=== PATIENT | male | born 1985 | race Caucasian/White ===

== ENCOUNTER 2018-01-25 19:05 | Emergency (ER) | payer SELFPAY ==
[~2018-01-25] VITALS: Ht 172.7 cm; Wt 85.7 kg
[2018-01-25 19:56] LABS: BASO # 0.1 10*3/uL (0.0-0.1); BASO % 0.6 % (0.0-1.0); EOS # 0.5 10*3/uL (0.0-0.4); EOS % 4.7 % (1.0-4.0); HEMATOCRIT 41.2 % (42.0-52.0); HEMOGLOBIN 13.5 g/dl (14.0-18.0); LYMPH % 27.5 % (27.0-41.0); MEAN CELL VOLUME 95.2 fl (80.0-94.0); MEAN CORPUSCULAR HGB 31.2 pg (27.0-31.0); MEAN CORPUSCULAR HGB CONC 32.8 g/dl (33.0-37.0); MEAN PLATELET VOLUME 9.7 fl (9.6-12.3); MONO % 8.7 % (3.0-9.0); NEUT # 6.3 10*3/uL (2.3-7.9); PLATELET COUNT AUTOMATED 285 10*3/uL (130-400); RED BLOOD COUNT 4.33 10*6/uL (4.50-5.90); RED CELL DISTRI WIDTH 12.4 % (0-14.5); WHITE BLOOD COUNT 10.9 10*3/uL (4.8-10.8)
[2018-01-25 19:57] LABS: BILIRUBIN NEGATIVE (NEGATIVE); BLOOD NEGATIVE (NEGATIVE); CLARITY SL CLOUDY (CLEAR); COLOR YELLOW (YELLOW); GLUCOSE NEGATIVE (NEGATIVE); KETONE TRACE (NEGATIVE); LEUKO ESTERASE 2+ (NEGATIVE); NITRITE NEGATIVE (NEGATIVE); PH 6.5 (5.0-9.0)
[2018-01-25 20:06] LABS: URINE AMPHETAMINES < 1000 (1000ng/ml); URINE BARBITURATES < 200 (200ng/ml); URINE BENZODIAZEPINES < 200 (200ng/ml); URINE CANNABINOIDS (THC) < 50 (50ng/ml); URINE COCAINE < 300 (300ng/ml); URINE METHADONE < 300 (300ng/ml); URINE OPIATES < 300 (300ng/ml)
[2018-01-25 20:10] LABS: URINE PHENCYCLIDINE < 25 (25ng/ml)
[2018-01-25 20:14] LABS: ALBUMIN 3.7 gm/dl (3.1-4.5); ALKALINE PHOSPHATASE 107 U/L (45-117); BUN 17 mg/dl (7-24); CHLORIDE 106 mmol/L (98-107); CREATININE 0.88 mg/dL (0.70-1.30); LIPASE 131 U/L (73-393); POTASSIUM 3.8 mmol/L (3.5-5.1); SGOT/AST 19 IU/L (3-35); SGPT/ALT 30 U/L (12-78); SODIUM 140 mmol/L (136-145); TOTAL PROTEIN 6.5 gm/dL (6.4-8.2)
[2018-01-25 20:15] LABS: TROPONIN I < 0.015 ng/ml (<0.045)
[2018-01-25 20:19] LABS: BACTERIA 1+; WBC TNTC wbc/hpf (0-5)
[2018-01-25 20:28] LABS: ETHYL ALCOHOL < 3.0 mg/dl (<3)
== END 2018-01-25 23:32 | disposition home or self-care (01) ==
LOC: ED 19:05
PROVIDERS: Emergency Medicine Emergency Medical Services
DX: R56.9 Unspecified convulsions (principal); F17.200 Nicotine dependence, unspecified, uncomplicated

== ENCOUNTER 2020-07-10 16:16 | Emergency (ER) | payer SELFPAY ==
[~2020-07-10] VITALS: Ht 190.5 cm; Wt 93.4 kg
[2020-07-10] MEDS ORDERED: IBU800 MG PO (17:45)
[2020-07-10] MEDS ORDERED: CLEOCIN HCL150 MG PO (17:45)
== END 2020-07-10 18:02 | disposition home or self-care (01) ==
LOC: ED 16:16
DX: K04.7 Periapical abscess without sinus (principal); F17.200 Nicotine dependence, unspecified, uncomplicated

== ENCOUNTER 2020-08-06 11:15 | Emergency (ER) | payer SELFPAY ==
[~2020-08-06] VITALS: Ht 190.5 cm; Wt 89.8 kg
[~2020-08-06 11:15] MED LIST: CLEOCIN HCL150 MG PO; IBU800 MG PO
[2020-08-06] MEDS ORDERED: NAPROSYN500 MG PO (12:01)
[2020-08-06] MEDS ORDERED: AMOXICILLIN500 M2 PO (12:01)
== END 2020-08-06 12:13 | disposition home or self-care (01) ==
LOC: ED 11:15
DX: K08.89 Other specified disorders of teeth and supporting structures (principal); Z79.899 Other long term (current) drug therapy

== ENCOUNTER 2020-11-23 13:57 | Emergency (ER) | payer OTHER ==
[~2020-11-23] VITALS: Ht 190.5 cm; Wt 89.8 kg
[~2020-11-23 13:57] MED LIST changes: +AMOXICILLIN500 M2 PO; +NAPROSYN500 MG PO
[2020-11-23] MEDS ORDERED: PREDNISONE20 M1 PO (16:12)
[2020-11-23] MEDS ORDERED: PROVENTIL HFA6.7 GM INH (16:12)
== END 2020-11-23 17:47 | disposition home or self-care (01) ==
LOC: ED 13:57
DX: R05 Cough (principal); J02.9 Acute pharyngitis, unspecified; R19.7 Diarrhea, unspecified; Z79.899 Other long term (current) drug therapy; Z20.828 Contact with and (suspected) exposure to other viral communicable diseases

== ENCOUNTER 2020-12-08 19:08 | Observation (INO) | payer OTHER ==
[~2020-12-08] VITALS: Ht 190.5 cm; Wt 89.8 kg
[~2020-12-08 19:08] MED LIST changes: +PREDNISONE20 M1 PO; +PROVENTIL HFA6.7 GM INH
[2020-12-08 19:26] VITALS: BP 119/73
[2020-12-08 20:16] LABS: BASO # 0.1 10*3/uL (0.0-0.1); BASO % 0.5 % (0.0-1.0); EOS # 0.2 10*3/uL (0.0-0.4); HEMATOCRIT 42.4 % (42.0-52.0); LYMPH # 2.5 10*3/uL (1.3-4.4); LYMPH % 22.9 % (27.0-41.0); MEAN CELL VOLUME 92.6 fl (80.0-94.0); MEAN CORPUSCULAR HGB 30.8 pg (27.0-31.0); MEAN CORPUSCULAR HGB CONC 33.3 g/dl (33.0-37.0); MEAN PLATELET VOLUME 9.4 fl (9.6-12.3); MONO # 0.6 10*3/uL (0.1-1.0); MONO % 5.7 % (3.0-9.0); NEUT # 7.5 10*3/uL (2.3-7.9); NEUT % 68.5 % (47.0-73.0); PLATELET COUNT AUTOMATED 351 10*3/uL (130-400); RED BLOOD COUNT 4.58 10*6/uL (4.50-5.90); RED CELL DISTRI WIDTH 13.3 % (0-14.5); WHITE BLOOD COUNT 10.9 10*3/uL (4.8-10.8)
[2020-12-08 20:36] VITALS: BP 130/78
[2020-12-08 21:06] LABS: ALBUMIN 4.1 gm/dl (3.1-4.5); ALKALINE PHOSPHATASE 78 U/L (45-117); BUN 17 mg/dl (7-24); CHLORIDE 109 mmol/L (98-107); CREATININE 0.95 mg/dL (0.70-1.30); POTASSIUM 3.8 mmol/L (3.5-5.1); SGOT/AST 16 IU/L (3-35); SGPT/ALT 33 U/L (12-78); SODIUM 140 mmol/L (136-145); TOTAL PROTEIN 7.3 gm/dL (6.4-8.2)
[2020-12-08 21:21] VITALS: BP 120/71
[2020-12-08 21:59] LABS: ABG BASE EXCESS -0.3 mmol/L (-2.0-2.0); ARTERIAL BLOOD GAS PH 7.428 (7.35-7.45)
[2020-12-08 22:01] VITALS: BP 114/85
[2020-12-08 22:47] VITALS: BP 116/75
[2020-12-09 03:11] VITALS: BP 120/68
[2020-12-09 04:59] LABS: BASO % 0.5 % (0.0-1.0); EOS # 0.4 10*3/uL (0.0-0.4); EOS % 4.1 % (1.0-4.0); LYMPH # 3.2 10*3/uL (1.3-4.4); LYMPH % 37.1 % (27.0-41.0); MEAN CELL VOLUME 94.7 fl (80.0-94.0); MEAN CORPUSCULAR HGB 30.6 pg (27.0-31.0); MEAN CORPUSCULAR HGB CONC 32.3 g/dl (33.0-37.0); MEAN PLATELET VOLUME 9.6 fl (9.6-12.3); MONO # 0.8 10*3/uL (0.1-1.0); MONO % 8.7 % (3.0-9.0); NEUT # 4.3 10*3/uL (2.3-7.9); NEUT % 49.4 % (47.0-73.0); PLATELET COUNT AUTOMATED 299 10*3/uL (130-400); RED BLOOD COUNT 4.12 10*6/uL (4.50-5.90); RED CELL DISTRI WIDTH 13.7 % (0-14.5); WHITE BLOOD COUNT 8.6 10*3/uL (4.8-10.8)
[2020-12-09 05:04] VITALS: BP 113/69
[2020-12-09 05:37] LABS: ALBUMIN 3.4 gm/dl (3.1-4.5); ALKALINE PHOSPHATASE 83 U/L (45-117); BUN 20 mg/dl (7-24); CHLORIDE 110 mmol/L (98-107); CREATININE 1.04 mg/dL (0.70-1.30); SGOT/AST 13 IU/L (3-35); SGPT/ALT 25 U/L (12-78); SODIUM 141 mmol/L (136-145); TOTAL PROTEIN 6.3 gm/dL (6.4-8.2)
[2020-12-09 06:21] VITALS: BP 101/58
[2020-12-09 07:38] VITALS: BP 99/67
[2020-12-09 08:23] VITALS: BP 87/57
== END 2020-12-09 18:24 | disposition home or self-care (01) ==
LOC: ED 19:08 → EDHOLD 21:33
PROVIDERS: Emergency Medicine; Nurse Practitioner Family; Student in an Organized Health Care Education/Training Program; ADMIT Family Medicine; ATTEND Family Medicine
DX: T58.91XA Toxic effect of carbon monoxide from unspecified source, accidental (unintentional), initial encounter (principal); G40.909 Epilepsy, unspecified, not intractable, without status epilepticus; R65.10 Systemic inflammatory response syndrome (SIRS) of non-infectious origin without acute organ dysfunction; R06.82 Tachypnea, not elsewhere classified; D72.829 Elevated white blood cell count, unspecified; E87.8 Other disorders of electrolyte and fluid balance, not elsewhere classified; F17.210 Nicotine dependence, cigarettes, uncomplicated; R03.0 Elevated blood-pressure reading, without diagnosis of hypertension; V93.83XA Other injury due to other accident on board other powered watercraft, initial encounter; Y93.89 Activity, other specified; Y92.89 Other specified places as the place of occurrence of the external cause; Y99.8 Other external cause status; Z71.6 Tobacco abuse counseling; Z20.828 Contact with and (suspected) exposure to other viral communicable diseases

== ENCOUNTER 2021-12-27 04:10 | Emergency (ER) | payer OTHER ==
[~2021-12-27] VITALS: Ht 185.4 cm; Wt 95.3 kg
== END 2021-12-27 05:24 | disposition home or self-care (01) ==
LOC: ED 04:10
DX: S05.02XA Injury of conjunctiva and corneal abrasion without foreign body, left eye, initial encounter (principal); F17.210 Nicotine dependence, cigarettes, uncomplicated; X58.XXXA Exposure to other specified factors, initial encounter; Y93.89 Activity, other specified; Y92.89 Other specified places as the place of occurrence of the external cause; Y99.8 Other external cause status

== ENCOUNTER 2022-04-03 21:47 | Emergency (ER) | payer OTHER ==
[~2022-04-03] VITALS: Ht 190.5 cm; Wt 90.7 kg
[2022-04-04 01:07] LABS: BASO # 0.1 10*3/uL (0.0-0.1); BASO % 0.7 % (0.0-1.0); EOS # 0.6 10*3/uL (0.0-0.4); EOS % 5.2 % (1.0-4.0); HEMATOCRIT 41.8 % (42.0-52.0); LYMPH # 4.3 10*3/uL (1.3-4.4); LYMPH % 40.2 % (27.0-41.0); MEAN CELL VOLUME 92.7 fl (80.0-94.0); MEAN CORPUSCULAR HGB 30.6 pg (27.0-31.0); MEAN PLATELET VOLUME 9.1 fl (9.6-12.3); MONO # 0.8 10*3/uL (0.1-1.0); MONO % 7.5 % (3.0-9.0); NEUT # 4.9 10*3/uL (2.3-7.9); PLATELET COUNT AUTOMATED 323 10*3/uL (130-400); RED BLOOD COUNT 4.51 10*6/uL (4.50-5.90); RED CELL DISTRI WIDTH 13.1 % (0-14.5); WHITE BLOOD COUNT 10.6 10*3/uL (4.8-10.8)
[2022-04-04 01:24] LABS: ALKALINE PHOSPHATASE 89 U/L (45-117); BUN 12 mg/dl (7-24); CHLORIDE 110 mmol/L (98-107); CREATININE 0.84 mg/dL (0.70-1.30); POTASSIUM 3.8 mmol/L (3.5-5.1); SGOT/AST 17 IU/L (3-35); SGPT/ALT 30 U/L (12-78); SODIUM 140 mmol/L (136-145); TOTAL PROTEIN 6.2 gm/dL (6.4-8.2)
[2022-04-04 01:38] LABS: URINE AMPHETAMINES < 1000 (1000ng/ml); URINE BARBITURATES < 200 (200ng/ml); URINE BENZODIAZEPINES < 200 (200ng/ml); URINE CANNABINOIDS (THC) < 50 (50ng/ml); URINE COCAINE < 300 (300ng/ml); URINE METHADONE < 300 (300ng/ml); URINE OPIATES < 300 (300ng/ml)
[2022-04-04 01:41] LABS: URINE PHENCYCLIDINE < 25 (25ng/ml)
== END 2022-04-04 03:46 | disposition home or self-care (01) ==
LOC: ED 21:47
PROVIDERS: Emergency Medicine
DX: R56.9 Unspecified convulsions (principal)

== ENCOUNTER 2022-06-18 19:35 | Emergency (ER) | payer OTHER ==
[2022-06-18] MEDS ORDERED: VIBRA-TAB100 MG PO (20:31)
== END 2022-06-18 20:42 | disposition home or self-care (01) ==
LOC: ED 19:35
DX: L02.413 Cutaneous abscess of right upper limb (principal)

== ENCOUNTER 2023-03-24 11:39 | Emergency (ER) | payer OTHER ==
[~2023-03-24] VITALS: Ht 190.5 cm; Wt 89.8 kg
[~2023-03-24 11:39] MED LIST changes: +VIBRA-TAB100 MG PO
== END 2023-03-24 11:58 | disposition home or self-care (01) ==
LOC: ED 11:39
DX: H10.33 Unspecified acute conjunctivitis, bilateral (principal); Z91.040 Latex allergy status; Z87.891 Personal history of nicotine dependence

== ENCOUNTER 2023-04-24 22:01 | Emergency (ER) | payer SELFPAY ==
[~2023-04-24] VITALS: Ht 190.5 cm; Wt 99.8 kg
[2023-04-25] MEDS ORDERED: CYCLOBENZAPRINE10 MG PO (00:50)
== END 2023-04-25 01:00 | disposition home or self-care (01) ==
LOC: ED 22:01
DX: S16.1XXA Strain of muscle, fascia and tendon at neck level, initial encounter (principal); E87.8 Other disorders of electrolyte and fluid balance, not elsewhere classified; Z91.040 Latex allergy status; Z88.8 Allergy status to other drugs, medicaments and biological substances; F17.200 Nicotine dependence, unspecified, uncomplicated; V89.2XXA Person injured in unspecified motor-vehicle accident, traffic, initial encounter; Y93.89 Activity, other specified; Y92.410 Unspecified street and highway as the place of occurrence of the external cause; Y99.8 Other external cause status

== ENCOUNTER 2024-05-17 17:50 | Emergency (ER) | payer SELFPAY ==
[~2024-05-17] VITALS: Ht 190.5 cm; Wt 89.8 kg
[~2024-05-17 17:50] MED LIST changes: +CYCLOBENZAPRINE10 MG PO
[2024-05-17] MEDS ORDERED: Acetaminophen/Oxycodone 5 MG/325 MG TABLET PO ONE (18:00)
[2024-05-17] MEDS ORDERED: MELOXICAM15 MG PO (18:23)
== END 2024-05-17 18:49 | disposition home or self-care (01) ==
LOC: ED 17:50
DX: S90.31XA Contusion of right foot, initial encounter (principal); F17.200 Nicotine dependence, unspecified, uncomplicated; Z91.040 Latex allergy status; Z88.8 Allergy status to other drugs, medicaments and biological substances; W20.8XXA Other cause of strike by thrown, projected or falling object, initial encounter; Y93.89 Activity, other specified; Y92.89 Other specified places as the place of occurrence of the external cause; Y99.0 Civilian activity done for income or pay

== ENCOUNTER 2024-12-19 19:56 | Emergency (ER) | payer SELFPAY ==
[~2024-12-19] VITALS: Ht 185.4 cm; Wt 90.7 kg
[~2024-12-19 19:56] MED LIST changes: +MELOXICAM15 MG PO
[2024-12-19 20:16] LABS: BASO % 0.4 % (0.0-1.0); EOS # 0.4 10*3/uL (0.0-0.4); EOS % 3.8 % (1.0-4.0); MEAN CELL VOLUME 92.1 fl (80.0-94.0); MEAN CORPUSCULAR HGB 30.1 pg (27.0-31.0); MEAN CORPUSCULAR HGB CONC 32.7 g/dl (33.0-37.0); MONO # 0.9 10*3/uL (0.1-1.0); NEUT # 4.6 10*3/uL (2.3-7.9); NEUT % 46.7 % (47.0-73.0); PLATELET COUNT AUTOMATED 355 10*3/uL (130-400); RED BLOOD COUNT 4.45 10*6/uL (4.50-5.90); RED CELL DISTRI WIDTH 13.2 % (0-14.5); WHITE BLOOD COUNT 9.8 10*3/uL (4.8-10.8)
[2024-12-19 20:34] LABS: BILIRUBIN Negative (Negative); BLOOD Negative (Negative); CLARITY Clear (Clear); COLOR Yellow (Yellow); GLUCOSE Negative (Negative); KETONE Negative (Negative); LEUKO ESTERASE Negative (Negative); NITRITE Negative (Negative); SPECIFIC GRAVITY <= 1.005 (1.001-1.030); UROBILINOGEN 0.2 E.U./dl (0.0-1.0)
[2024-12-19 20:45] LABS: URINE AMPHETAMINES Negative (1000ng/ml); URINE BARBITURATES Negative (200ng/ml); URINE BENZODIAZEPINES Negative (200ng/ml); URINE CANNABINOIDS (THC) Negative (50ng/ml); URINE COCAINE Negative (300ng/ml); URINE METHADONE Negative (300ng/ml); URINE OPIATES Negative (300ng/ml); URINE PHENCYCLIDINE Negative (25ng/ml)
[2024-12-19 20:46] LABS: BUN 11 mg/dl (9-23); CHLORIDE 105 mmol/L (98-107); POTASSIUM 3.5 mmol/L (3.4-5.1)
[2024-12-19 20:47] LABS: ETHYL ALCOHOL < 3.0 mg/dl (<3)
[2024-12-19 21:27] LABS: WBC 0-2 wbc/hpf (0-5)
== END 2024-12-19 22:22 | disposition home or self-care (01) ==
LOC: ED 19:56
PROVIDERS: Internal Medicine
DX: R25.8 Other abnormal involuntary movements (principal); R51.9 Headache, unspecified; Z91.040 Latex allergy status

== ENCOUNTER 2025-05-29 21:36 | Emergency (ER) | payer SELFPAY ==
[~2025-05-29] VITALS: Ht 190.5 cm; Wt 89.8 kg
[2025-05-29] MEDS ORDERED: Cyclobenzaprine Hydrochlorid 10 MG TAB PO ONE (22:00)
[2025-05-29] MEDS ORDERED: IBUPROFEN 600 MG TAB PO ONE (22:00)
[2025-05-29] MEDS ORDERED: CYCLOBENZAPRINE5 M3 PO (22:50)
== END 2025-05-29 22:57 | disposition home or self-care (01) ==
LOC: ED 21:36
DX: S80.811A Abrasion, right lower leg, initial encounter (principal); M62.838 Other muscle spasm; M54.2 Cervicalgia; Z91.048 Other nonmedicinal substance allergy status; Z91.040 Latex allergy status; Z87.891 Personal history of nicotine dependence; W20.8XXA Other cause of strike by thrown, projected or falling object, initial encounter; Y93.89 Activity, other specified; Y92.89 Other specified places as the place of occurrence of the external cause; Y99.8 Other external cause status

== ENCOUNTER 2025-08-30 17:38 | Emergency (ER) | payer SELFPAY ==
[~2025-08-30] VITALS: Wt 89.8 kg
[~2025-08-30 17:38] MED LIST changes: +CYCLOBENZAPRINE5 M3 PO
[2025-08-30] MEDS ORDERED: NAPROSYN500 MG PO (19:12)
== END 2025-08-30 19:30 | disposition home or self-care (01) ==
LOC: ED 17:38
DX: M77.32 Calcaneal spur, left foot (principal); E78.00 Pure hypercholesterolemia, unspecified; F17.200 Nicotine dependence, unspecified, uncomplicated; Z88.8 Allergy status to other drugs, medicaments and biological substances; Z91.040 Latex allergy status